=== PATIENT | male | born 1990 | race Caucasian/White ===

== ENCOUNTER 2016-10-06 09:09 | Emergency (ER) | payer OTHER ==
[~2016-10-06] VITALS: Ht 170.2 cm; Wt 79.4 kg
--- NOTE | 2016-10-06 09:14 | NUR ---
PT C/O HIP AND GROIN PAIN S/P FALLING OFF LADDER X 3 DAYS AGO. VSS. AWAITING MD ORDER
[2016-10-06] MEDS ORDERED: HYDROCODONE/APAP 5/325MG 1 EACH TABLET ONE (09:36)
[2016-10-06] MEDS ORDERED: ONDANSETRON 4 MG TAB.RAPDIS ONE ×2 (09:36→10:27)
--- NOTE | 2016-10-06 09:42 | NUR ---
URINE SAMPLE COLLECTED SENT TO LAB
--- NOTE | 2016-10-06 09:42 | NUR ---
PT MEDICATED ORDERED
[2016-10-06 09:50] LABS: APPEARANCE,URINE Clear (CLEAR); BILIRUBIN,URINE MODERATE (NEGATIVE); BLOOD, URINE Negative Ery/uL (NEGATIVE); COLOR,URINE Orange (YELLOW); KETONES,URINE >=160 (NEGATIVE); LEUKOCYTE ESTERASE ,URINE Negative (NEGATIVE); NITRITE, URINE Positive (NEGATIVE); PROTEIN,URINE 30 mg/dl (NEGATIVE); UGLUCOSE 100 MG/DL mg/dL (NEGATIVE)
[2016-10-06 09:59] LABS: BACTERIA,URINE Moderate /HPF (None Seen); RBC,URINE 0-2 /HPF (0-2); SQUAMOUS EPITHELIAL CELL,UR Few /HPF (None Seen)
[2016-10-06] MEDS ORDERED: ONDANSETRON 4 MG TAB.RAPDIS PO ONE (10:00)
[2016-10-06] MEDS ORDERED: HYDROCODONE/APAP 5/325MG 1 EACH TABLET PO ONE (10:00)
[2016-10-06] MEDS ORDERED: AZITHROMYCIN 250 MG TABLET ONE (10:27)
[2016-10-06] MEDS ORDERED: METRONIDAZOLE 500 MG TABLET ONE (10:27)
[2016-10-06] MEDS ORDERED: LIDOCAINE /MPF 1% VIAL 5 ML VIAL ONE (10:28)
[2016-10-06] MEDS ORDERED: CEFTRIAXONE 1 G VIAL ONE (10:28)
[2016-10-06] MEDS ORDERED: AZITHROMYCIN 250 MG TABLET PO ONE (10:30)
[2016-10-06] MEDS ORDERED: METRONIDAZOLE 500 MG TABLET PO ONE (10:30)
[2016-10-06] MEDS ORDERED: CEFTRIAXONE 1 G VIAL IM ONE (10:30)
[2016-10-06] MEDS ORDERED: ONDANSETRON 4 MG TAB.RAPDIS SL ONE (10:30)
--- NOTE | 2016-10-06 13:13 | NUR ---
Patient discharged to home in stable condition. Written and verbal after care instructions given. Patient verbalizes understanding of instruction.
[2016-10-06 13:14] VITALS: BP 125/83
== END 2016-10-06 13:15 | disposition home or self-care (01) ==
LOC: ER 09:12
DX: S39.011A Strain of muscle, fascia and tendon of abdomen, initial encounter (principal); N39.0 Urinary tract infection, site not specified; F41.9 Anxiety disorder, unspecified; W11.XXXA Fall on and from ladder, initial encounter; Y93.89 Activity, other specified; Y92.89 Other specified places as the place of occurrence of the external cause; Y99.8 Other external cause status
CPT/HCPCS: 73503; 76870; 81001; 87086; 87491; 87591; 96372; 99285; A4606; J0696; J3490; Q0162 ×2; Z7610; 73510-TC; 81000-TC

== ENCOUNTER 2022-02-04 11:55 | Inpatient (IN) | payer OTHER ==
[~2022-02-04] VITALS: Ht 175.3 cm; Wt 88.5 kg
[2022-02-04] MEDS ORDERED: LORAZEPAM INJ 2 MG/ML VIAL IV ONE (12:00)
[2022-02-04] MEDS ORDERED: IV NS 0.9% 1,000 ML IV ONE ×2 (12:00→13:30)
[2022-02-04] MEDS ORDERED: LORAZEPAM INJ 2 MG/ML VIAL ONE (12:10)
--- NOTE | 2022-02-04 12:15 | NUR ---
DOUBLE NEEDLE OPERATOR LOCKSTITCH AT BEDSIDE
--- NOTE | 2022-02-04 12:15 | NUR ---
[id number], CRAWLING IN THE STREETS, TACHYCARDIC, ADENOSINE GIVEN TOTAL 18MG TO NO EFFECT, BS 112MG/DL PADDLE DYEING MACHINE OPERATOR. PLACED ON BED, RESPONDING TO VERBAL STIMULI, ANXIOUS, ATTACHED TO MONITOR SHOWS SINUS TACHYCARDIA MD- 125, SATURATING AT 97%RA. WILL CONTINUE TO MONITOR.
--- NOTE | 2022-02-04 12:30 | NUR ---
URINE SAMPLE SENT TO LAB
[2022-02-04 12:35] LABS: BASOPHILS % (AUTO) 0.1 % (0.0-2.0); EOSINOPHILS % (AUTO) 0.2 % (0.0-6.0); HEMATOCRIT 48 % (39-51); HEMOGLOBIN 16.2 g/dL (13.5-17.5); LYMPHOCYTES # (AUTO) 1.8 K/uL (0.8-4.8); LYMPHOCYTES % (AUTO) 6.9 % (20.0-44.0); MEAN CORPUSCULAR HGB CONC 34 g/dl (31.0-36.0); MEAN CORPUSCULAR VOLUME 81 fL (80-96); MONOCYTES # (AUTO) 2.2 K/uL (0.1-1.30); MONOCYTES % (AUTO) 8.6 % (2.0-12.0); NEUTROPHILS # (AUTO) 21.5 K/uL (1.8-8.9); NEUTROPHILS % (AUTO) 84.2 % (43.0-81.0); PLATELET COUNT (AUTO) 528 K/uL (150-450); RED BLOOD CELL COUNT(AUTO) 5.94 MIL/uL (4.5-6.0); WHITE BLOOD COUNT (AUTO) 25.6 K/uL (4.3-11.0)
[2022-02-04 12:39] LABS: BILIRUBIN,URINE SMALL (NEGATIVE); COLOR,URINE YELLOW (YELLOW); LEUKOCYTE ESTERASE ,URINE NEGATIVE (NEGATIVE); NITRITE, URINE NEGATIVE (NEGATIVE); PROTEIN,URINE 30 mg/dl (NEGATIVE); UGLUCOSE NEGATIVE (NEGATIVE); UROBILINOGEN,URINE 0.2 EU/dL (0.2)
[2022-02-04 13:05] LABS: ALANINE AMINOTRANSFERASE 34 U/L (12-78); ALBUMIN 5.4 g/dL (3.4-5.0); ALKALINE PHOSPHATASE 84 U/L (46-116); ASPARTATE AMINOTRANSFERASE 96 U/L (15-37); BILIRUBIN,DIRECT 0.2 mg/dL (0.0-0.2); BILIRUBIN,TOTAL 1.2 mg/dL (0.2-1.0); CALCIUM, SERUM 10.1 mg/dL (8.5-10.1); CARBON DIOXIDE 17 mmol/L (21-32); CHLORIDE 99 mmol/L (98-107); CREATININE 2.4 mg/dL (0.6-1.3); GLUCOSE 83 mg/dL (74-106); POTASSIUM 4.2 mmol/L (3.5-5.1); SODIUM SERUM 145 mmol/L (136-145); TOTAL PROTEIN, SERUM 9.7 g/dL (6.4-8.2); UREA NITROGEN, BLOOD 27 mg/dL (7-18)
[2022-02-04 13:08] LABS: THYROID STIMULATING HORMONE 4.648 uIU/mL (0.358-3.74)
[2022-02-04 13:10] LABS: BACTERIA,URINE Rare /HPF (None Seen); HYALINE CASTS, URINE Few /LPF (None Seen); SQUAMOUS EPITHELIAL CELL,UR Rare /HPF (None Seen); WBC,URINE 0-2 /HPF (0-3)
[2022-02-04 13:11] LABS: ACETAMINOPHEN 0 ug/ml (10-30); ALCOHOL, BLOOD < 3 mg/dL (0-0)
--- NOTE | 2022-02-04 16:45 | NUR ---
SWAB FOR COVID19 SENT TO LAB
--- NOTE | 2022-02-05 00:06 | NUR ---
REPORT GIVEN TO ALE
[2022-02-05 00:30] VITALS: BP 122/73
--- NOTE | 2022-02-05 00:30 | NUR ---
PAPER RULERBEHAVIORAL INTERVENTIONIST NOTES RECEIVED FORM ER PER SANIYA THIS 31 YO MALE FOUND CRAWLING ON THE STREET AT [place],TACHYCARDIC UPON CHECKING ON HIS VITAL SIGNS,BROUGHT TO ER BY PARAMEDICS FOR FURTHER EVALUATION AND MANAGEMENT.ALERT,ORIENTED X4,ABLE TO STATE HIS NAME AND KNOWS WHERE HE IS AT THE MOMENT.COMMENTED ''I CANT WALK THAT WHY IM CRAWLING ON THE STREET.BASICALLY PATIENT IS HOMELESS AND SAID HE WILL MOVE TO HER MOMS PLACE ONCE DISCHARGE.WITH SALINE LOCK ON RIGHT AC INTACT AND PATENT.VACCINATED WITH COVID 19 VACCINE ON MAR 2021 AND JUNE 2019.NO BOOSTER.NOTED SKIN ABRASION ON BOTH KNEE AND BILATERAL ARM,SUSTAINED FROM CRAWLING.NO KNOWN ALLERGY,COMMENTED HE DOEST SMOKE NOR DRINK ALCOHOLIC BEVERAGE BUT HE SMOKE MARIJUAN AND HE JUST QUIT 3 DAYS AGO.WILL CONTINUE TO MONITOR STATUS,CALL LIGHT IN REACH,NEEDS ANTICIPATED.
--- NOTE | 2022-02-05 00:36 | NUR ---
pt transported to room 320-2 on cardiac in stable condition
[2022-02-05 00:40] VITALS: BP 122/73
[2022-02-05] MEDS ORDERED: ACETAMINOPHEN 325 MG TABLET PO PRN (01:00)
[2022-02-05] MEDS ORDERED: ZOLPIDEM TARTRATE 5 MG TABLET PO PRN (01:00)
[2022-02-05] MEDS ORDERED: ONDANSETRON HCL/PF 4 MG/2 ML VIAL IV PRN (01:00)
[2022-02-05] MEDS ORDERED: HYDROCODONE/APAP 5/325MG TABLET PO PRN (01:00)
[2022-02-05] MEDS: IV D5/ 0.9% NACL 1,000 ML IV PRN ×2 (01:21→16:02)
--- NOTE | 2022-02-05 01:21 | NUR ---
PURCHASING COORDINATOR NOTES SR 85 ON TELE MONITOR.STARTED ON IVF D5NS AT 100ML/HR RATE INFUSING VIA IV PUMP ON RIGHT AC SALINE LOCK.
--- NOTE | 2022-02-05 02:00 | NUR ---
DRY CANS BACK TENDER NOTES FEELING HUNGRY,ON REGULAR DIET,SANDWICH AND APPLE JUICE PROVIDED.
[2022-02-05 06:02] LABS: BASOPHILS % (AUTO) 0.1 % (0.0-2.0); EOSINOPHILS % (AUTO) 0.6 % (0.0-6.0); HEMATOCRIT 39 % (39-51); LYMPHOCYTES % (AUTO) 17.7 % (20.0-44.0); MEAN CORPUSCULAR HGB CONC 34 g/dl (31.0-36.0); MEAN CORPUSCULAR VOLUME 81 fL (80-96); MONOCYTES # (AUTO) 1.2 K/uL (0.1-1.30); MONOCYTES % (AUTO) 10.8 % (2.0-12.0); NEUTROPHILS # (AUTO) 7.9 K/uL (1.8-8.9); NEUTROPHILS % (AUTO) 70.8 % (43.0-81.0); PLATELET COUNT (AUTO) 288 K/uL (150-450); WHITE BLOOD COUNT (AUTO) 11.1 K/uL (4.3-11.0)
--- NOTE | 2022-02-05 06:26 | NUR ---
HYDRAULIC BOOM OPERATOR NOTES TRIED TO CLEAN ABRASION ON BOTH ARMS AND BILATERAL KNEE BUT REFUSED,COMMENTED ITS SORE.IVF INFUSING WELL ON RIGHT AC SALINE LOCK.UNABLE TO AMBULATE,AWAITING PT EVAL, SOCIAL SERVICE EVAL PATIENT IS HOMELESS.NO DISTRESS.
[2022-02-05 06:38] LABS: ALBUMIN 3.7 g/dL (3.4-5.0); BILIRUBIN,TOTAL 0.9 mg/dL (0.2-1.0); CREATININE 1.2 mg/dL (0.6-1.3); POTASSIUM 3.2 mmol/L (3.5-5.1); TOTAL PROTEIN, SERUM 6.7 g/dL (6.4-8.2)
--- NOTE | 2022-02-05 07:15 | NUR ---
NUTRITION COUNSELOR OPENING NOTES: RECEIVED PT IN BED ASLEEP EASILY AWAKEN BY VERBAL STIMULI. NO SOB OR CARDIAC DISTRESS NOTED, AFEBRILE. ON MOBILE EQUIPMENT SERVICER WITH CURRENT READING OF SINUS RHYTHM @95BPM. IV ACCESS ON RAC G#20 PATENT AND INTACT RUNNING D5W 1L@100ML/HR. SAFETY PRECAUTIONS MAINTAINED: BED LOCKED AND IN LOWEST POSITION, SIDE RAILS UP X2. CALL LIGHT IN EASY REACH FOR HELP. WILL MONITOR ACCORDINGLY.
[2022-02-05] MEDS ORDERED: ALPR2TAB7 PO (07:45)
[2022-02-05] MEDS ORDERED: AMIT100T2 PO (07:45)
[2022-02-05 08:00] VITALS: BP_SYST 130; BP_SYST 138; BP_DIAS 66; BP_DIAS 73
[2022-02-05] MEDS ORDERED: POTASSIUM CHLORIDE 20 MEQ TAB.PRT.SR PO ONE (09:00)
[2022-02-05] MEDS ORDERED: POTASSIUM CHLORIDE 20 MEQ TAB.PRT.SR PO SCH (10:00)
--- NOTE | 2022-02-05 10:08 | NUR ---
WOUND CARE CONSULT: PT REFUSED FULL SKIN ASSEASSMENT OF BACK AND BUTTOCKS. PT PRESENTS WITH DISCOLORATIONS TO UPPER AND LOWER EXTREMITIES, WELL FACE, PRESENT ON ADMISSION. LEFT KNEE ABRASION IS OPEN. RECOMMENDATIONS MADE FOR SKIN PROTECTION. DISCUSSED WITH NURSING STAFF. MD IN AGREEMENT WITH PLAN OF CARE.
[2022-02-05 12:00] VITALS: BP_SYST 128; BP_SYST 130; BP_DIAS 62; BP_DIAS 67
[2022-02-05 15:02] LABS: CALCIUM, SERUM 8.4 mg/dL (8.5-10.1); CREATININE 0.9 mg/dL (0.6-1.3); POTASSIUM 3.8 mmol/L (3.5-5.1)
[2022-02-05 16:00] VITALS: BP_SYST 103; BP_SYST 130; BP_DIAS 52; BP_DIAS 78
--- NOTE | 2022-02-05 16:15 | NUR ---
SS consult requested for substance use and homelessness. SW will follow up as needed.
--- NOTE | 2022-02-05 18:35 | NUR ---
TECH INTERN CLOSING NOTES: PATIENT IN BED, AWAKE, ALERT AND ORIENTED X 4 AND ABLE TO VERBALIZED NEEDS. NO SOB OR CARDIAC DISTRESS NOTED, ON ROOM AIR AND TOLERATING WELL ON MEDICAL BILLING SERVICE WITH CURRENT READING OF SINUS RYTHM 95 BPM IV ACCESS ON RAC G20 PATENT AND INTACT INFUSING D5NS 1L @100CC/HR. SAFETY PRECAUTIONS IN PLACE: BED IN LOWEST, LOCKED POSITION, SIDE RAILS UPx2, CALL LIGHT WITHIN REACH. WILL MONITOR PT ACCORDINGLY. ENDORSED TO NOC SHIFT FOR NAZIA.
--- NOTE | 2022-02-05 18:35 | NUR ---
INSPECTOR FILTERS CLOSING NOTES: PATIENT IN BED, AWAKE, ALERT AND ORIENTED X 4 AND ABLE TO VERBALIZED NEEDS. NO SOB OR CARDIAC DISTRESS NOTED, ON ROOM AIR AND TOLERATING WELL ON BUSINESS ANALYST CONSULTANT WITH CURRENT READING OF SINUS RYTHM 95 BPM IV ACCESS ON RAC G20 PATENT AND INTACT INFUSING D5NS 1L @100CC/HR. SAFETY PRECAUTIONS IN PLACE: BED IN LOWEST, LOCKED POSITION, SIDE RAILS UPx2, CALL LIGHT WITHIN REACH. WILL MONITOR PT ACCORDINGLY. ENDORSED TO NOC SHIFT FOR NAZIA.
--- NOTE | 2022-02-05 19:30 | NUR ---
NURSE STAFF INDUSTRIAL NOTES RECEIVED LAYING ON BED,A/O X4,NO SOB,DENIES PAIN,SEEN HIM AMBULATE GOING TO THE RESTROOM WITH STEADY GAIT.PRESENT IVF D5NS AT 100ML/HR RATE INFUSING WELL OB RIGHT AC SALINE LOCK VIA IV PUMP,SITE PATENT.NOTED DINNER FOOD CONSUMED 100% OF IT.DENIES DISCOMFORTS AT THE MOMENT,ONLY ASKING FOR SLEEPING PILL LATER.CALL LIGHT IN REACH,NEEDS ANTICIPATED.
--- NOTE | 2022-02-05 19:45 | NUR ---
ADVERTISING ANALYST NOTES ST-102 ON TELE MONITOR.
[2022-02-05 20:00] VITALS: BP 118/68
--- NOTE | 2022-02-05 21:56 | NUR ---
SCOUTS NOTES C/O INSOMNIA,AMBIEN 5MG PO GIVEN ORDERED,PER PATIENT REQUEST.
[2022-02-06] VITALS: BP 132/63
[2022-02-06 04:00] VITALS: BP 112/68
[2022-02-06 05:29] LABS: CALCIUM, SERUM 8.7 mg/dL (8.5-10.1); CREATININE 0.8 mg/dL (0.6-1.3); POTASSIUM 3.4 mmol/L (3.5-5.1)
--- NOTE | 2022-02-06 06:54 | NUR ---
TALENT MANAGEMENT SPECIALIST NOTES NO SIGNIFICANT CHANGE IN STATUS,SLEEP WELL WITH AMBIEN,IVF HELD FOR THE NIGHT,PATIENT REFUSED,CANT SLEEP AND KEEP ON BENDING HIS RIGHT ELBOW.NO DISTRESS.POSSIBLE DISCHARGE IF CPK LESS THAN 4000.ENDORSED TO DAY NURSE FOR NAZIA.
--- NOTE | 2022-02-06 07:25 | NUR ---
JAVA DEVELOPER CONSULTANT OPENING NOTES: RECEIVED PT AWAKE IN BED IN NO ACUTE SIGNS OF DISTRESS. A/O X4. ABLE TO MAKE NEEDS KNOWN, DENIES PAIN OR ANY DISCOMFORTS AT THIS TIME. ON ROOM AIR, TOLERATING WELL, BREATHING EVEN AND UNLABORED. ON STOCKBROKER WITH CURRENT READING OF SINUS TACH, HR 105 BPM, NO C/O CARDIAC DISTRESS VOICED AT THIS TIME. IV ACCESS ON RAC G#20 INTACT WITH IVF OF D5 NS @100ML/HR INFUSING WELL. SAFETY PRECAUTIONS MAINTAINED: BED LOCKED AND IN LOWEST POSITION, SIDE RAILS UP X2, BED ALARM AND CALL LIGHT W/IN EASY REACH. WILL MONITOR PT ACCORDINGLY.
[2022-02-06 08:00] VITALS: BP 115/72
[2022-02-06] MEDS ORDERED: POTASSIUM CHLORIDE 20 MEQ TAB.PRT.SR PO ONE (09:00)
--- NOTE | 2022-02-06 09:59 | NUR ---
RN NOTES PT WITH LOW POTASSIUM 3.4 TODAY, ADMINISTERED K-DUR [id number] ORDERED.
[2022-02-06 12:21] LABS: CALCIUM, SERUM 8.7 mg/dL (8.5-10.1); CREATININE 0.8 mg/dL (0.6-1.3); POTASSIUM 3.9 mmol/L (3.5-5.1)
--- NOTE | 2022-02-06 13:42 | NUR ---
RN NOTES PT NOTED STILL WITH HIGH TOTAL CREATINE KINASE [id number], DR LERMA MADE AWARE AND NO DISCHARGE TODAY.
--- NOTE | 2022-02-06 14:30 | NUR ---
RN NOTES AT ABOUT 1400, PT LEFT UNIT AWOL. PT DIDN'T NOTIFY ANY STAFF THAT HE WANTED TO GO HOME. HE REMOVED HIS IV ACCESS ON RAC AND LEFT IT ON HIS TRAY TABLE. HE ALSO REMOVED HIS CARDIAC EXTERNAL MONITOR AND PLACED ON HIS BED. INCIDENT FOUND OUT WHEN SECURITY AT THE [facility] CALLED UNIT ABOUT THE PATIENT BUT PATIENT RUN AWAY FROM THEM. DR LERMA MADE AWARE OF THIS INCIDENT.
--- NOTE | 2022-02-07 13:32 | NUR ---
Toppiece Chopper Note Pt. was discharged before SW could conduct consult.
== END 2022-02-06 14:00 | disposition left against medical advice (07) | DRG 812 ==
LOC: ER 12:02 → TELE 23:44
PROVIDERS: ADMIT Internal Medicine; ATTEND Internal Medicine
DX: T43.621A Poisoning by amphetamines, accidental (unintentional), initial encounter (principal); N17.0 Acute kidney failure with tubular necrosis; M62.82 Rhabdomyolysis; E86.0 Dehydration; Y92.89 Other specified places as the place of occurrence of the external cause; Z20.822 Contact with and (suspected) exposure to COVID-19; F41.9 Anxiety disorder, unspecified; Y92.410 Unspecified street and highway as the place of occurrence of the external cause; F19.121 Other psychoactive substance abuse with intoxication delirium
CPT/HCPCS: 36415; 71045-TC; 80048-TC; 80053-TC; 80076-TC; 81001; 82550-TC; 82553; 84443-TC; 84484-TC; 85025-TC; 87081-TC; 97116-TC; 97530-TC; C9803; G0378; G0480; J2060; J7042